=== PATIENT | female | born 2000 | race Caucasian/White ===

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

== ENCOUNTER 2021-02-04 01:44 | Emergency (ER) | payer MEDICAID ==
[~2021-02-04] VITALS: Ht 172.7 cm; Wt 61.4 kg
[~2021-02-04 01:44] MED LIST changes: +NAPROXEN 3375 MG/TAB PO
[2021-02-04 01:50] VITALS: TEMP 98.5
[2021-02-04 02:34] LABS: COLLECTION METHOD CLEAN CATCH
[2021-02-04 02:38] LABS: BASO # 0.1 (0.0-0.2); BASO % 1.2 % (0.0-2.0); EOS # 0.1 (0.0-0.7); EOS % 1.2 % (0-4.0); GRAN # 3.4 (1.4-6.5); GRAN % 50.6 % (42.2-75.2); HEMATOCRIT 37.4 % (35.0-45.0); HEMOGLOBIN 12.6 g/dl (12.0-15.0); LYMPH # 2.8 (1.2-3.4); LYMPH % 41.8 % (20.0-51.0); MEAN CELL VOLUME 88 fl (80.0-95.0); MEAN CORPUSCULAR HEMOGLOBIN 30 pg (26.0-32.0); MEAN CORPUSCULAR HGB CONC 34 g/dl (33.0-37.0); MEAN PLATELET VOLUME 10.7 fl (7.4-10.4); MONO # 0.3 (0.1-0.6); MONO % 5.1 % (1.7-9.3); PLATELET COUNT 265 K/mm3 (130-400); RED BLOOD COUNT 4.24 M/mm3 (4.10-5.30)
[2021-02-04 02:43] LABS: MUCOUS Present /lpf; PH 6 (5-8); URINE APPEARANCE Hazy; URINE BACTERIA Rare /hpf; URINE BILIRUBIN Negative (NEGATIVE); URINE BLOOD Negative (NEGATIVE); URINE COLOR Yellow; URINE GLUCOSE Negative (NEGATIVE); URINE KETONE Negative (NEGATIVE); URINE LEUKOCYTE ESTERASE Trace (NEGATIVE); URINE NITRATE Negative (NEGATIVE); URINE PROTEIN(semi-quant) 1+ (NEGATIVE); URINE RBC 0-2 /hpf
[2021-02-04 02:49] LABS: ALBUMIN 4.4 gm/dL (3.5-5.0); BILIRUBIN,TOTAL 0.2 mg/dL (0.0-1.0); CALCIUM 9.1 mg/dL (8.4-10.2); CREATININE, serum 0.64 (0.52-1.25); POTASSIUM 3.5 mmol/L (3.4-5.0); TOTAL PROTEIN 7.4 gm/dL (6.4-8.2)
[2021-02-04] MEDS ORDERED: TYLENOL 325MG325 MG PO (03:24)
[2021-02-04 03:29] VITALS: BP 103/76; PULSE 73
== END 2021-02-04 03:33 | disposition home or self-care (01) ==
LOC: COL.ER 01:44
PROVIDERS: Emergency Medicine
DX: R82.81 Pyuria (principal); M54.6 Pain in thoracic spine
CPT/HCPCS: Q9967

== ENCOUNTER 2021-04-04 02:12 | Emergency (ER) | payer MEDICAID ==
[~2021-04-04] VITALS: Ht 172.7 cm; Wt 61.4 kg
[~2021-04-04 02:12] MED LIST changes: +TYLENOL 325MG325 MG PO
[2021-04-04 02:40] LABS: STREP SCREEN NEGATIVE
[2021-04-04 03:11] VITALS: BP 109/72; PULSE 73; TEMP 98.1
== END 2021-04-04 03:08 | disposition home or self-care (01) ==
LOC: COL.ER 02:12
PROVIDERS: Emergency Medicine
DX: J02.8 Acute pharyngitis due to other specified organisms (principal)